=== PATIENT | female | born 1990 | race Caucasian/White ===

== ENCOUNTER 2017-05-20 17:14 | Emergency (ER) | payer SELFPAY | END 2017-05-20 18:19 | disposition left against medical advice (07) | LOC: EME 17:14 | DX: R07.9 Chest pain, unspecified (principal); Z53.21 Procedure and treatment not carried out due to patient leaving prior to being seen by health care provider ==

== ENCOUNTER 2017-05-21 09:35 | Emergency (ER) | payer BC ==
[~2017-05-21] VITALS: Ht 160 cm; Wt 66.6 kg
[2017-05-21 10:27] LABS: HEMOGLOBIN 16.3 G/DL (11.9-15.5); MCH 29.4 PG (29.0-34.0); MCHC 34.7 G/DL (30.0-36.0); MCV 84.8 FL (83-99); PLATELET COUNT 309 K/uL (156-360); RBC DIS.WIDTH-CV 12.4 % (11.8-14.6); RBC DIS.WIDTH-SD 38.1 % (39-53); RED BLOOD COUNT 5.54 M/uL (3.80-5.20); WHITE BLOOD COUNT 7.4 K/uL (4.1-10.2)
[2017-05-21 10:37] LABS: ALBUMIN 4.3 g/dL (3.2-4.8)
[2017-05-21 10:38] LABS: CHLORIDE 109 mEq/L (99-109); POTASSIUM 4.3 mEq/L (3.7-5.4); SODIUM 138 mEq/L (136-147)
[2017-05-21 10:40] LABS: GLUCOSE 89 mg/dL (70-99); TOTAL PROTEIN 6.9 g/dL (6.4-8.3)
[2017-05-21 10:42] LABS: TOTAL BILIRUBIN 0.5 mg/dL (0.0-1.0)
[2017-05-21 10:43] LABS: ALKALINE PHOSPHATASE 76 IU/L (3-129)
[2017-05-21 10:45] LABS: AST (GOT) 27 IU/L (2-34); CREATININE 0.9 mg/dL (0.6-1.3); GFR ESTIMATE (CALCULATED) > 59 mL/min/; UREA NITROGEN (BUN) 8 mg/dL (9-23)
[2017-05-21 10:47] LABS: ALT (GPT) 23 IU/L (3-49)
[2017-05-21 10:48] LABS: TROP-I INTERPRETATION NEGATIVE; TROPONIN-I < 0.01 ng/mL (0.0-0.30)
[2017-05-21 11:06] LABS: QUANTITATIVE HCG < 4.0 MIU/ML
[2017-05-21 13:18] LABS: TROP-I INTERPRETATION NEGATIVE; TROPONIN-I < 0.01 ng/mL (0.0-0.30)
[2017-05-21 14:46] VITALS: BP 113/44
== END 2017-05-21 14:46 | disposition home or self-care (01) ==
LOC: EME 09:35
PROVIDERS: Emergency Medicine
DX: R07.9 Chest pain, unspecified (principal); F41.9 Anxiety disorder, unspecified
CPT/HCPCS: 71020; 80053; 84484; 84702; 85027; 93005; 99281; 99285